=== PATIENT | male | born 1990 | race Caucasian/White ===

== ENCOUNTER 2019-03-30 09:50 | Emergency (ER) | payer SELFPAY ==
--- NOTE | 2019-03-30 11:25 | EDM.PDOC ---
ED HPI GENERAL MEDICAL PROBLEM - General Chief Complaint: Laceration Stated Complaint: LEFT ARM PAIN Time Seen by Provider: 03/30/19 10:35 Source of Information: Reports: Patient History Limitations: Reports: No Limitations - History of Present Illness INITIAL COMMENTS - FREE TEXT/NARRATIVE: Patient presented to the ED because of wound sustained on the left upper arm and left buttock. The bull went after him and hit his left upper arm and left buttovk with the horn. He sustaine d a 6 cm linear laceration on the left forearm and 8 cm laceration on the left buttock. - Related Data Home Meds: Home Meds cephALEXin [Keflex] 500 mg PO Q8H #30 cap 03/30/19 [Rx] ED ROS GENERAL - Review of Systems Review Of Systems: See Below Constitutional: Reports: No Symptoms HEENT: Reports: No Symptoms Respiratory: Reports: No Symptoms Cardiovascular: Reports: No Symptoms Endocrine: Reports: No Symptoms GI/Abdominal: Reports: No Symptoms : Reports: No Symptoms Musculoskeletal: Reports: No Symptoms Skin: Reports: Wound Neurological: Reports: No Symptoms ED EXAM, SKIN/RASH Exam: See Below Exam Limited By: No Limitations General Appearance: Alert, WD/WN, No Apparent Distress Ears: Normal External Exam, Normal Canal, Hearing Grossly Normal, Normal TMs Nose: Normal Inspection, Normal Mucosa, No Blood Throat/Mouth: Normal Inspection, Normal Lips, Normal Teeth, Normal Gums, Normal Oropharynx, Normal Voice Head: Atraumatic, Normocephalic Neck: Normal Inspection, Supple, Non-Tender, Full Range of Motion Respiratory/Chest: No Respiratory Distress, Lungs Clear, Normal Breath Sounds, No Accessory Muscle Use, Chest Non-Tender Cardiovascular: Normal Peripheral Pulses, Regular Rate, Rhythm, No Edema, No Gallop GI/Abdominal: Normal Bowel Sounds, Soft, Non-Tender, No Organomegaly, No Distention, No Abnormal Bruit, No Mass, Pelvis Stable Back Exam: Normal Inspection, Full Range of Motion, CVA Tenderness (R) Extremities: Normal Inspection, Normal Range of Motion, Non-Tender, No Pedal Edema, Normal Capillary Refill Psychiatric: Normal Affect Skin: Warm, Intact, Other (left upper arm-6 cm linear laceration) Location, Skin: Upper Extremity, Left (6 cm laceration and 8 cm laceration on left buttock) Associated features: Warmth Course - Vital Signs Text/Narrative:: patient has an allergy to Tday The wound was cleansed with saline and iodine solution then infiltrated with 1% lidocaine. The wound on left upper arm -6cm require 7 stitches and the left buttock recquires 9 stitches. Patient tolerated well without any complication. - Orders/Labs/Meds Orders: Active Orders 24 hr Category Date Time Status Forearm 2V Lt [CR] Stat Exams 03/30/19 10:59 Taken Hip Min 2V or 3V w Pelvis Lt [CR] Stat Exams 03/30/19 10:59 Taken Departure - Departure Time of Disposition: 11:20 Disposition: Home, Self-Care 01 Condition: Good Clinical Impression: Laceration - Discharge Information Prescriptions: cephALEXin [Keflex] 500 mg PO Q8H #30 cap Instructions: Laceration Care, Adult Referrals: PCP,None [Primary Care Provider] - Forms: ED Department Discharge Additional Instructions: please read discharge instructions on wound care no need to apply antibiotic ointment take keflex 500 mg 3 times daily for 10 days You may take ibuprofen 800 mg with tylenol 1000 mg every 8 hours as needed for pain removal of suture in 14 days. - My Orders Last 24 Hours: My Active Orders 03/30/19 10:59 Forearm 2V Lt [CR] Stat Hip Min 2V or 3V w Pelvis Lt [CR] Stat - Assessment/Plan Last 24 Hours: My Active Orders 03/30/19 10:59 Forearm 2V Lt [CR] Stat Hip Min 2V or 3V w Pelvis Lt [CR] Stat
== END 2019-03-30 12:13 | disposition home or self-care (01) ==
LOC: FB.ED 09:50
DX: S52.612A Displaced fracture of left ulna styloid process, initial encounter for closed fracture (principal); S52.302A Unspecified fracture of shaft of left radius, initial encounter for closed fracture; S31.821A Laceration without foreign body of left buttock, initial encounter; W55.22XA Struck by cow, initial encounter; Y92.79 Other farm location as the place of occurrence of the external cause
CPT/HCPCS: 12002; 12005; 73090-LT; 73502-LT; 99283; 99283-25; J2001